=== PATIENT | male | born 1950 | race Caucasian/White ===

== ENCOUNTER 2019-02-01 07:01 | Emergency (ER) | payer MEDICARE, BC ==
--- NOTE | 2019-02-01 07:50 | EDM.PDOC ---
ED HPI GENERAL MEDICAL PROBLEM - General Chief Complaint: Back Pain or Injury Stated Complaint: PAIN IN RIB AREA Time Seen by Provider: 02/01/19 07:34 Source of Information: Reports: Patient, Family, RN History Limitations: Reports: No Limitations - History of Present Illness INITIAL COMMENTS - FREE TEXT/NARRATIVE: 68 yr old male presents with right lower chest pain. States this pain started yesterday. He is from [facility], [place] and traveled to [place] with RV and boat. He was setting up cam yesterday and the pain got worse. His is with him. Hx of diabetes for about 20 yr with some neuropathy, CAD and stent placement, low back surgery and does use CPAP. Pain increases with movement and is sharp. right upper quadrant pain Pain Score (Numeric/FACES): 10 - Related Data Allergies Allergy/AdvReac Type Severity Reaction Status Date / Time bee pollen Allergy Anaphylactic Verified 02/01/19 07:24 Shock Penicillins Allergy Anaphylactic Verified 02/01/19 07:24 Shock Home Meds: Home Meds Allopurinol [Zyloprim] 300 mg PO DAILY 02/01/19 [History] Aspirin [Halfprin] 81 mg PO DAILY 02/01/19 [History] Colchicine 0.6 mg PO BID 02/01/19 [History] EPINEPHrine [Auvi-Q] 0.1 mg IJ ASDIRECTED PRN 02/01/19 [History] Indomethacin 50 mg PO TID 02/01/19 [History] LORazepam [Ativan] 0.5 mg PO ASDIRECTED PRN 02/01/19 [History] Liraglutide [Victoza 3-Fabricio] 18 mg .XX DAILY 02/01/19 [History] Lisinopril 20 mg PO DAILY 02/01/19 [History] Metoprolol Tartrate [Lopressor] 25 mg PO Q12HR 02/01/19 [History] Nitroglycerin 0.3 mg SL ASDIRECTED PRN 02/01/19 [History] Prazosin HCl [Prazosin] 2 mg PO BEDTIME 02/01/19 [History] Sertraline [Zoloft] 100 mg PO DAILY 02/01/19 [History] Ticagrelor [Brilinta] 90 mg PO BID 02/01/19 [History] atorvaSTATin [Lipitor] 80 mg PO BEDTIME 02/01/19 [History] glipiZIDE [Glucotrol XL] 2.5 mg PO BEDTIME 02/01/19 [History] hydroCHLOROthiazide [Hydrochlorothiazide] 12.5 mg PO DAILY 02/01/19 [History] ED ROS GENERAL - Review of Systems Review Of Systems: See Below Constitutional: Reports: No Symptoms HEENT: Reports: Glasses. Denies: Ear Pain, Eye Pain, Sinus Problem Respiratory: Reports: Shortness of Breath (with this pain). Denies: Cough Cardiovascular: Denies: Chest Pain, Edema Endocrine: Reports: Other (diabetes) GI/Abdominal: Denies: Constipation, Diarrhea, Decreased Appetite, Nausea Musculoskeletal: Reports: Other (hx of low back pain) Skin: Reports: No Symptoms Neurological: Reports: No Symptoms Psychiatric: Reports: No Symptoms ED EXAM, GENERAL - Physical Exam Exam: See Below Exam Limited By: No Limitations General Appearance: Alert, No Apparent Distress Ears: Hearing Grossly Normal Nose: Normal Inspection Throat/Mouth: Normal Inspection, Normal Lips, Normal Voice, No Airway Compromise Head: Atraumatic, Normocephalic Neck: Normal Inspection, Supple, Non-Tender, Full Range of Motion Respiratory/Chest: No Respiratory Distress, Crackles (right lower lobe). No: Rhonchi, Wheezing Cardiovascular: Normal Peripheral Pulses, Regular Rate, Rhythm, No Edema Peripheral Pulses: 2+: Radial (L), Radial (R) GI/Abdominal: Normal Bowel Sounds, Soft, No Distention, Tender (with palpation and guarding with palpation to RUQ) Back Exam: Normal Inspection, Full Range of Motion Extremities: Normal Range of Motion, Non-Tender, No Pedal Edema Neurological: Alert, Oriented, Normal Cognition Psychiatric: Normal Affect, Normal Mood Skin Exam: Warm, Dry, Normal Color Lymphatic: No Adenopathy Course - Vital Signs Last Recorded V/S: Last Vital Signs Temp 97.9 F 02/01/19 08:25 Pulse 66 02/01/19 08:25 Resp 16 02/01/19 08:25 BP 120/59 L 02/01/19 08:25 Pulse Ox 97 02/01/19 08:25 - Orders/Labs/Meds Labs: Laboratory Tests 02/01/19 02/01/19 02/01/19 Range/Units 07:37 07:37 07:39 WBC 10.4 (4.0-11.0) K/uL RBC 4.00 L (4.50-6.50) M/uL Hgb 11.7 L (13.0-18.0) g/dL Hct 35.3 L (40.0-54.0) % MCV 88 (76-96) fL MCH 29.3 (27.0-32.0) pg MCHC 33.1 (31.0-35.0) g/dL RDW 13.3 (11.0-16.0) % Plt Count 188 (150-400) K/uL MPV 10.7 H (6.0-10.0) fL Neut % (Auto) 78.0 H (45.0-70.0) % Lymph % (Auto) 11.0 L (20.0-40.0) % Porter % (Auto) 8.3 (3.0-10.0) % Eos % (Auto) 2.4 (1.0-5.0) % Baso % (Auto) 0.3 (0.0-0.5) % Neut # (Auto) 8.11 H (2.00-7.50) K/uL Lymph # (Auto) 1.14 L (1.50-4.00) K/uL Porter # (Auto) 0.86 H (0.20-0.80) K/uL Eos # (Auto) 0.25 (0.04-0.40) K/uL Baso # (Auto) 0.03 (0.02-0.10) K/uL Sodium 135 L (136-145) mmol/L Potassium 4.6 (3.5-5.1) mmol/L Chloride 99 (98-107) mmol/L Carbon Dioxide 28.1 (21.0-32.0) mmol/L Anion Gap 12.5 (5.0-15.0) mmol/L BUN 19 (8-26) mg/dL Creatinine 1.40 H (0.70-1.30) mg/dL Est Cr Clr Drug Dosing 54.66 mL/min Estimated GFR (MDRD) 50 L (>60) MLS/MIN BUN/Creatinine Ratio 13.6 (6-25) Glucose 236 H (74-100) mg/dL Calcium 8.8 (8.5-10.1) mg/dL Total Bilirubin 0.4 (0.0-1.0) mg/dL AST 15 (15-37) U/L ALT 27 (12-78) U/L Alkaline Phosphatase 113 (46-116) U/L Troponin I < 0.017 (0.000-0.060) ng/mL Total Protein 7.2 (6.4-8.2) g/dL Albumin 3.4 (3.4-5.0) g/dL Globulin 3.8 (2.2-4.2) g/dL Albumin/Globulin Ratio 0.9 (0.8-2.0) Amylase 53 (25-115) U/L Lipase 336 (73-393) U/L TSH, Ultra Sensitive 2.343 (0.358-3.740) uIU/mL - Re-Assessments/Exams Free Text/Narrative Re-Assessment/Exam: 02/01/19 8:30 am Lab results and chest x-ray completed today and results reviewed with pt and . No consolidation to lungs and no infiltrates noted. Labs are noncontributory. Recommend to limit twisting, jarring movement to upper torso and ribs and limit heavy lifting. Will start muscle relaxer and Tylenol #3 for relief of pain. Rest and take it easy the remainder of the day. Boating would be worse for this type of pain and recommend no tossing in the boat until the pain is improved. This may take 4 weeks to improve, but should be manageable with the medication. Return to clinic or ER if symptoms worsen, or fever develops. Departure - Departure Time of Disposition: 08:44 Disposition: Home, Self-Care 01 Condition: Good Clinical Impression: Costochondritis, acute - Discharge Information *PRESCRIPTION DRUG MONITORING PROGRAM REVIEWED*: Not Applicable *COPY OF PRESCRIPTION DRUG MONITORING REPORT IN PATIENT ANASTASIA: Not Applicable Instructions: Muscle Strain, [id number], Heat Therapy, [id number] Referrals: PCP,None [Primary Care Provider] - Forms: ED Department Discharge Additional Instructions: Use the muscle relaxer and the pain medication as needed for pain. Follow up in the clinic or the ER if you are not better or the pain gets worse. Feel free to call the clinic at [phone] or the hospital at [phone] if you have any questions or concerns. - Assessment/Plan Plan: Costochondritis: Recommend to limit twisting, jarring movement to upper torso and ribs and limit heavy lifting. Will start muscle relaxer and Tylenol #3 for relief of pain. Rest and take it easy the remainder of the day. Boating would be worse for this type of pain and recommend no tossing in the boat until the pain is improved. This may take 4 weeks to improve, but should be manageable with the medication. Return to clinic or ER if symptoms worsen, or fever develops.
--- NOTE | 2019-02-01 09:16 | CR ---
DATE OF SERVICE: 02/01/19 CLINICAL DATA: lower right sided chest pain PA AND LATERAL CHEST: No priors. The patient has taken a poor inspiration. The heart size is normal. The lungs are clear. No pneumothorax. No pleural effusions. No evidence of acute intrathoracic disease. [id number] MTDD
== END 2019-02-01 08:51 | disposition home or self-care (01) ==
LOC: LB.ED 07:01
DX: M94.0 Chondrocostal junction syndrome [Tietze] (principal)
CPT/HCPCS: 36415; 71046; 80053; 82150; 83690; 84443; 84484; 85025; 99283-25